=== PATIENT | female | born 1990 | race Caucasian/White ===

== ENCOUNTER 2018-07-16 17:13 | Emergency (ER) | payer BC, SELFPAY ==
[2018-07-16 17:24] VITALS: BP 117/70; PULSE 98; RESP 18; TEMP 36.5; O2SAT 97
[2018-07-16] MEDS: Lactated Ringers 1,000 ML 1000 ML IV (18:15)
--- NOTE | 2018-07-16 18:21 | ED.GENADUL_ITS ---
Discharge Plan Disposition Patient Disposition: HOME Condition: Improving Discharge Details Chief Complaint: Abd Prob Clinical Impression: Acute viral syndrome, Abdominal pain Primary Care Provider: Nimco Sandy ED Provider: Abad St Home Meds and New Rx's Prescriptions: No Action melatonin 10 mg Capsule 10 mg PO HS PRNRF: 0 Discharge Instructions Instructions: Viral Syndrome (ED), Abdominal Pain (ED) Additional Instructions: 1. Drink plenty of fluids. Advance solids as tolerated. 2. Continue all medications as prescribed. 3. Acetaminophen 1000mg every 4 hours (up to 5 time a day) and/or ibuprofen 600mg every 6 hours as needed for fever or pain. 4. Ranitidine 300 mg at bedtime. 5. Ondansetron (Zofran) 4 mg ODT every 4-6 hours as needed for nausea/vomiting. Return to the Emergency Department (ED) if your condition worsens, does not improve as expected, or for ANY other concerns. Specifically, return if you have new or uncontrolled pain, worsening fever, difficulty breathing, vomiting, or are unable to drink fluids. Medical Decision Making 28-year-old woman with an unremarkable past medical history presents with generalized myalgias, upper abdominal pain, nausea, and weakness. Nonfocal exam except for dry mucosa and mild epigastric tenderness which reproduces subjective pain. Clinical improved after receiving IV crystalloid, IV metoclopramide. However, had mild anxiety/dystonia associate with her metoclopramide which resolved after receiving IV diphenhydramine. On reevaluation feels subjectively improved with reduced abdominal pain, resolved nausea, and resolved anxiety. Also notes resolution of her subjective chest tightness with inspiration treated with oral ranitidine and discharged home with ondansetron ODT. Discharged plan for aggressive oral hydration, ranitidine at bedtime, and Zofran ODT as needed for persistent nausea. Pt evaluated immediately prior to discharge with improved symptoms, normal vital signs, and tolerating PO. The patient feels appropriate for discharge home. Discussed clinical/diagnostic findings. Discharged with a clear plan for outpatient follow up. Given usual and customary return instructions prior to discharge. Medical Records Medical records reviewed: Yes I reviewed the patient's medical records. HPI 28-year-old with unremarkable past medical history. Presents with days of worsening nausea, malaise, myalgias, mild dyspnea, and upper abdominal pain. Has been able to take some liquids and but has had a decreased appetite because of her discomfort. Denies significant fever/chills, headache, neck pain, chest pain, cough, change in bowel habits, urinary symptoms. General Date/Time Provider Initiated Documentation: 07/16/18 17:47 . Related Data Home Medications Medication Instructions Recorded Confirmed melatonin 10 mg PO HS PRN 07/16/18 07/16/18 Allergies Allergy/AdvReac Type Severity Reaction Status Date / Time No Known Allergies Allergy Unverified 07/16/18 17:31 General Stated Complaint: Abd Prob PATRICIA: 3 Review of Systems Review of Systems All systems are reviewed and are unremarkable except as noted in HPI and below: CONSTITUTIONAL: no fevers/chills, weakness, decreased appetite EYES: no change in vision HEENT: no throat pain or difficulty swallowing; no neck pain CARDIOVASCULAR: no chest pain, palpitations, leg swelling, or diaphoresis RESPIRATORY: no cough, mild subjective chest tightness/dyspnea GASTROINTESTINAL: Upper abdominal pain and nausea with no emesis. GENITOURINARY: no dysuria, flank pain, MUSCULOSKELETAL: no pack pain, myalgias, arthralgias INTEGUMENTARY: no rash, no wounds NEUROLOGIC: no headache, focal weakness, difficulty with speech, numbness PSYCHIATRIC: no confusion, no anxiety HEME: no easy bruising or bleeding ALLERGIC: no urticaria PFSH Medical History Idiopathic peripheral neuropathy (Acute) Surgical History History of repair of anterior cruciate ligament of left knee (Acute) Family History Father Hypertension Hyperlipidemia Gout Mother Fatty liver Tremor Paternal Grandmother Depression Bipolar 1 disorder Diabetes Social History Smoking/Tobacco Use Status: Never Alcohol Intake: current Alcohol Intake frequency: a few times a week Drug use: Never Substance use type: does not use Do you feel safe at home: Yes Do you feel safe in your relationship?: Yes Exam Narrative Exam Narrative: Nursing note and vital signs have been reviewed and noted. GENERAL: alert, active, mild discomfort, dry mucosa HEENT: atraumatic/normocephalic, PERRLA, EOMI, conjunctiva clear, external ears/canals normal, nasal mucosa normal NECK: supple, full range of motion, no mass, normal lymphadenopathy, no thyromegaly CARDIOVASCULAR: RRR, no murmurs, nl pulses, no edema PULMONARY: nl effort, no audible wheezing or stridor, nl breath sounds with no focal deficit. no chest wall tenderness ABDOMEN: soft, mild epigastric tenderness, non-distended, no mass, no organomegaly EXTREMITY: normal muscle tone, all joints with FROM, no deformity or tenderness SKIN: no exanthem appreciated NEURO: gross motor exam normal, normal stance and gait PSYCH: alert and oriented, Course Vital Signs Temperature 97.7 F 07/16/18 17:24 Pulse 98 H 07/16/18 17:24 Respiratory Rate 18 07/16/18 17:24 Blood Pressure 117/70 07/16/18 17:24 Pulse Oximetry 97 07/16/18 17:24 Temperature 97.7 F 07/16/18 17:24 Temperature Source Temporal Artery Scan 07/16/18 17:24 Pulse 98 H 07/16/18 17:24 Respiratory Rate 18 07/16/18 17:24 Respiratory Effort Non-Labored 07/16/18 17:28 Blood Pressure 117/70 07/16/18 17:24 Blood Pressure Position Sitting 07/16/18 17:24 Pulse Oximetry 97 07/16/18 17:24 Oxygen Delivery Method Room Air 07/16/18 17:24 Oxygen Flow Rate 0 07/16/18 17:24 Pain Level 9 07/16/18 17:24
[2018-07-16] MEDS: Metoclopramide 10 MG/2 ML VIAL IVP (18:22)
[2018-07-16] MEDS: diphenhydrAMINE 50 MG/ML VIAL 25 MG IVP (18:35)
[2018-07-16] MEDS: Ondansetron O.D.T. 4 MG TABEF PO (19:10)
== END 2018-07-16 19:12 | disposition home or self-care (01) ==
PROVIDERS: Emergency Provider Emergency Medicine; PCP Nurse Practitioner Family
DX: B34.9 Viral infection, unspecified (principal); R10.9 Unspecified abdominal pain
CPT/HCPCS: 81025; 96361; 96374; 96375; 99284; J2765

== ENCOUNTER 2019-02-04 21:25 | Outpatient (REF) | payer BC, SELFPAY ==
[2019-02-04 19:02] LABS: Anion Gap 8.5 mmol/L (3-11); BUN 14 mg/dL (7-18); CO2 27.5 mmol/L (21.0-32.0); Calcium 8.8 mg/dL (8.5-10.1); Chloride 103 mmol/L (98-107); Glucose 94 mg/dL (70-100); Potassium 4.2 mmol/L (3.5-5.1); Sodium 139 mmol/L (136-145)
[2019-02-04 19:04] LABS: HCT 42.1 % (36.0-46.0); Mean Corp. HGB Concentration 33.3 g/dL (32.0-36.0); Mean Corpuscular Volume 90.1 fL (80-95); Mean Platelet Volume 9.4 fL (8.0-11.0); Platelet Count 314 x1000/uL (130-400); RBC 4.67 m/cumm (4.00-5.20); RBC Distribution Width 12.7 % (11.7-14.6); White Blood Cell Count 7.44 k/cumm (4.4-10.8)
[2019-02-04 19:47] LABS: Iron 53 ug/dL (50-175); Total Iron Binding Capacity 314 ug/dL (250-450); Transferrin Sat 17 % (15-50)
[2019-02-06 10:25] LABS: Lyme Ab w Rflx to Lyme Confirm Negative
== END 2019-02-04 21:45 ==
LOC: NCHCN 21:25
PROVIDERS: PCP Nurse Practitioner Family; Visit Provider Nurse Practitioner Family
DX: R53.83 Other fatigue (principal)
CPT/HCPCS: 80048; 85027; 83540; 83550; 86618

== ENCOUNTER 2019-08-29 01:31 | Outpatient (CLI) | payer BC, SELFPAY ==
--- NOTE | 2019-08-29 | DI.US_ITS ---
EXAM: US ABDOMEN PELVIS CLINICAL HISTORY: LLQ ABD PAIN, R10.32, ? ABD OR PELVIC MASS,HEARTBURN TECHNIQUE: Ultrasound performed using standard protocol. COMPARISON: No exams were available for comparison FINDINGS: Abdominal ultrasound was performed and shows unremarkable appearance of the liver. There is no evide nce of cholelithiasis or biliary dilatation. No gallbladder wall thickening. The pancreas is unremarkable in appearance. Spleen appears normal. Kidneys are unremarkable with no evidence of hydronephrosis or nephrolithiasis. Abdominal aorta and IVC are of normal diameter. Pelvic ultrasound was performed trans abdominally only. The examination is of limited technical qual ity due to the trans abdominal scan and the patient's anatomy. The ovaries are nonvisualized. The u terus is poorly visualized. Endometrial stripe appears homogeneous and about 7 millimeters in thickn ess. Question bicornuate uterus. IMPRESSION: Unremarkable abdominal ultrasound, no cholelithiasis. Pelvic ultrasound was obtained transabdominally only and is of limited quality. If there is a clinic al suspicion of a pelvic mass transvaginal scanning or other cross-sectional imaging, CT or MRI, may be obtained. DATA REPOSITORY:
== END 2019-08-29 01:51 ==
PROVIDERS: PCP Nurse Practitioner Family; Visit Provider Nurse Practitioner Family
DX: R10.32 Left lower quadrant pain (principal); R12 Heartburn
CPT/HCPCS: 76700; 76856

== ENCOUNTER 2021-08-23 15:55 | Outpatient (REF) | payer BC, SELFPAY ==
[2021-08-23 17:04] LABS: Abs Immature Grans 0.01 10^3/uL (0.0-0.06); Absolute Basophil Count 0.05 10^3/uL (0.0-0.2); Absolute Eosinophil Count 0.05 10^3/uL (0.0-0.7); Absolute Lymphocyte Count 1.99 10^3/uL (1.2-3.4); Absolute Monocyte Count 0.45 10^3/uL (0.1-0.8); Absolute Neutrophil Count 3.07 10^3/uL (1.2-6.7); Basophils % 0.9; Eosinophils % 0.9; HCT 44.5 % (36.0-46.0); HGB 14.1 g/dL (11.2-15.7); Immature Grans % 0.2; Lymphocytes % 35.4; MCH 29.7 pg (27.0-33.0); MCHC 31.7 % (32.0-36.0); MCV 93.9 fL (80-95); MPV 9.5 fL (8.0-11.0); Neutrophils % 54.6; Platelet Count 339 10^3/uL (130-400); RBC 4.74 10^6/uL (3.93-5.22); RDW 12.3 % (11.7-14.6); WBC 5.62 10^3/uL (4.4-10.8)
[2021-08-23 17:20] LABS: ESR 6 mm/hr (0-20)
[2021-08-23 17:37] LABS: ALT 27 U/L (14-59); AST 21 U/L (15-37); Albumin 4.3 g/dL (3.4-5.0); Alkaline Phosphatase 66 U/L (46-116); Anion Gap 7.8 mmol/L (3-11); BUN 8 mg/dL (7-18); Bilirubin, Total 0.4 mg/dL (0.2-1.0); CO2 28.2 mmol/L (21.0-32.0); CREATININE 0.7 mg/dL (0.55-1.02); Calcium 8.9 mg/dL (8.5-10.1); Chloride 104 mmol/L (98-107); Folate 17.9 ng/mL (8.6-20.0); Glucose 98 mg/dL (74-106); Potassium 4.3 mmol/L (3.5-5.1); Sodium 140 mmol/L (136-145); TSH (W/Ref FT4) 3.04 uIU/mL (0.36-3.74); Total Protein 7.6 g/dL (6.4-8.2)
[2021-08-25 10:32] LABS: Hepatitis C Ab w Rflx HCV PCR Negative (Negative)
[2021-08-25 10:34] LABS: HIV-1/2 Ag & Ab Screen Negative (Negative)
== END 2021-08-23 15:56 | disposition home or self-care (01) ==
LOC: LBN 15:55
PROVIDERS: PCP Nurse Practitioner Family; Visit Provider Nurse Practitioner Family
DX: R10.32 Left lower quadrant pain (principal)
CPT/HCPCS: 80053; 85652; 86803; 87389; 82746; 84443; 85025

== ENCOUNTER 2022-05-03 19:02 | Outpatient (REF) | payer BC, SELFPAY ==
--- NOTE | 2022-05-03 19:23 | DI.VRAD_ITS ---
PROCEDURE INFORMATION: Exam: XR Chest Exam date and time: 05/03/2022 7:16 PM Age: 32 years old Clinical indication: Other: Left flank pain and or left lower rib pain; Additional info: PT. Has been having left flank pain, and or left lower rib pain TECHNIQUE: Imaging protocol: Radiologic exam of the chest. Views: 2 views. COMPARISON: CT ABDOMEN PELVIS W 09/03/2020 8:17 AM FINDINGS: Lungs: Mild chronic interstitial prominence. No consolidation. Pleural spaces: Unremarkable. No pleural effusion. No pneumothorax. Heart/Mediastinum: Unremarkable. No cardiomegaly. Bones/joints: Unremarkable. IMPRESSION: No acute findings. Dictated and Authenticated by: Jose Collazo MD. Ordering:RANDELL Costello MD
[2022-05-03 21:15] LABS: Abs Immature Grans 0.02 10^3/uL (0.0-0.06); Absolute Basophil Count 0.05 10^3/uL (0.0-0.2); Absolute Eosinophil Count 0.07 10^3/uL (0.0-0.7); Absolute Lymphocyte Count 2.79 10^3/uL (1.2-3.4); Absolute Monocyte Count 0.73 10^3/uL (0.1-0.8); Absolute Neutrophil Count 3.89 10^3/uL (1.2-6.7); Basophils % 0.7; Eosinophils % 0.9; HCT 42.3 % (36.0-46.0); Immature Grans % 0.3; MCHC 33.1 % (32.0-36.0); MCV 91 fL (80-95); MPV 9.2 fL (8.0-11.0); Monocytes % 9.7; Neutrophils % 51.4; Platelet Count 329 10^3/uL (130-400); RBC 4.67 10^6/uL (3.93-5.22); RDW 12.8 % (11.7-14.6); RDW-SD 42.3 fL; WBC 7.55 10^3/uL (4.4-10.8)
[2022-05-03 21:35] LABS: ALT 23 U/L (14-59); AST 22 U/L (15-37); Albumin 4.4 g/dL (3.4-5.0); Alkaline Phosphatase 61 U/L (46-116); Anion Gap 7.4 mmol/L (3-11); BUN 14 mg/dL (7-18); Bilirubin, Total 0.4 mg/dL (0.2-1.0); CO2 27.6 mmol/L (21.0-32.0); CREATININE 0.8 mg/dL (0.55-1.02); Calcium 9.4 mg/dL (8.5-10.1); Chloride 105 mmol/L (98-107); Estimated GFR 100.96 (mL/min/1.73m2); Glucose 93 mg/dL (74-106); Lipase 49 U/L (73-393); Potassium 4.1 mmol/L (3.5-5.1); Sodium 140 mmol/L (136-145); Total Protein 7.8 g/dL (6.4-8.2)
== END 2022-05-03 19:03 | disposition home or self-care (01) ==
LOC: LBN 19:02
PROVIDERS: PCP Nurse Practitioner Family; Visit Provider Physician Assistant Medical
DX: R10.31 Right lower quadrant pain (principal)
CPT/HCPCS: 80053; 83690; 85025

== ENCOUNTER 2022-05-03 19:07 | Outpatient (CLI) | payer BC, SELFPAY ==
--- NOTE | 2022-05-03 | DI.RAD_ITS ---
Exam(s) XR CHEST 2V PA LATERAL EXAM: XR CHEST 2V PA LATERAL CLINICAL HISTORY: Experiencing left flank pain and or left lower rib pain. TECHNIQUE: 2D digital imaging was performed. COMPARISON: No exams were available for comparison FINDINGS: 2 views: Heart size is normal. The mediastinum is not widened. Lungs are clear. No infiltrates nor pleural effusions. IMPRESSION: No acute pulmonary findings. DATA REPOSITORY: RADIATION DOSE DELIVERED:
== END 2022-05-03 19:27 ==
LOC: DI 19:09
PROVIDERS: PCP Nurse Practitioner Family; Visit Provider Physician Assistant Medical
DX: R10.32 Left lower quadrant pain (principal)
CPT/HCPCS: 71046

== ENCOUNTER 2022-10-12 19:12 | Outpatient (REF) | payer BC, SELFPAY ==
--- OUTSIDE RECORDS SUMMARY | 2022-10-12 19:15 | XMS_ITS | Continuity of Care Document ---
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 [employer] Name Role Phone Aleks Nguyen Primary Care Physician Encounter [facility] Date(s): 04/04/22 - 04/04/[address] [phone] Discharge Disposition: Home or Self Care Attending Physician: Aleks Nguyen DO Admitting Physician: Aleks Nguyen DO Immunizations Given and Recorded Vaccine Date Status Refusal Reason influenza virus vaccine, inactivated 1 02/09/22 Re corded SARS-CoV-2 (COVID-19) mRNA-1273 vaccine 05/09/21 R ecorded SARS-CoV-2 (COVID-19) mRNA-1273 vaccine 06/23/20 R ecorded SARS-CoV-2 (COVID-19) mRNA-1273 vaccine 05/26/20 R ecorded influenza virus vaccine, live 02/03/21 Recorded influenza virus vaccine, live 01/26/20 Recorded influenza virus vaccine, live 01/23/19 Recorded 1Result Comment: [employer] Results Laboratory List Name Date SARS-CoV-2 (COVID-19) RNA (ID Now) Most recent to oldest [Reference Range]: 1 SARS-CoV-2 (COVID-19) RNA (ID Now) [Not Detected] Not Detected (04/04/22 9:07 AM) Social History Social History Type Response Sex Female Patient Care team information Personnel Name: Aleks Nguyen DO Address: Address: [address] [address]
== END 2022-10-12 19:13 | disposition home or self-care (01) ==
LOC: LBN 19:12
PROVIDERS: PCP Nurse Practitioner Family; Visit Provider Physician Assistant Medical
DX: R10.2 Pelvic and perineal pain (principal)
CPT/HCPCS: 87480; 87510; 87660

== ENCOUNTER 2022-11-03 01:12 | Outpatient (CLI) | payer BC, SELFPAY ==
--- NOTE | 2022-11-03 | DI.MRI_ITS ---
Exam(s) MR PELVIS WO EXAM: MR PELVIS WO CLINICAL HISTORY: PELVIC PAIN R10.2 INCREASING DAILY PAIN TECHNIQUE: Multiplanar multisequence MRI of Pelvis was performed COMPARISON: CT CT ABDOMEN PELVIS W from 09/03/2020 US US RENAL PELVIC TRANSVAGINAL from 05/09/2022 FINDINGS: Bones: There is no fracture or contusion pattern. No significant hip joint effusion present. The S I joints and symphysis pubis are well maintained. Suspicious bony lesion. Lower lumbar spine and s acrum appear normal. L4-5 and L5-S1 discs are visible and appear normal. No disc herniation or neur al foraminal narrowing. No central canal stenosis. Musculotendinous structures: No muscle atrophy or abnormal signal. 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 No fibroids. The endometrial stripe appears no rmal. A nabothian cyst is incidentally noted. Dominant follicle present on the right ovary. Left o vary tiny follicles. The visualized portions of the bowel are unremarkable. Bladder appears normal. No free fluid. No adenopathy. Soft tissues: No lower anterior abdominal wall or inguinal hernia. IMPRESSION: Normal MRI examination the pelvis. DATA REPOSITORY:
== END 2022-11-03 01:32 ==
LOC: DI 01:12
PROVIDERS: PCP Nurse Practitioner Family; Visit Provider Physician Assistant Medical
DX: R10.2 Pelvic and perineal pain (principal); N85.8 Other specified noninflammatory disorders of uterus; N83.01 Follicular cyst of right ovary; N83.02 Follicular cyst of left ovary
CPT/HCPCS: 72195

== ENCOUNTER 2024-03-10 18:23 | Outpatient (REF) | payer BC, SELFPAY ==
[2024-03-10 15:45] LABS: Abs Immature Grans 0.02 10^3/uL (0.0-0.06); Absolute Basophil Count 0.05 10^3/uL (0.0-0.2); Absolute Eosinophil Count 0.03 10^3/uL (0.0-0.7); Absolute Lymphocyte Count 2.15 10^3/uL (1.2-3.4); Absolute Monocyte Count 0.57 10^3/uL (0.1-0.8); Absolute Neutrophil Count 3.86 10^3/uL (1.2-6.7); Basophils % 0.7 %; Eosinophils % 0.4 %; HGB 13.7 g/dL (11.2-15.7); Immature Grans % 0.3 %; Lymphocytes % 32.2 %; MCH 30.6 pg (27.0-33.0); MCHC 32.6 % (32.0-36.0); MCV 94 fL (80-95); MPV 9.2 fL (8.0-11.0); Monocytes % 8.5 %; Neutrophils % 57.9 %; Platelet Count 369 10^3/uL (130-400); RBC 4.48 10^6/uL (3.93-5.22); RDW 13.1 % (11.7-14.6); RDW-SD 45.1 fL; WBC 6.68 10^3/uL (4.4-10.8)
[2024-03-10 17:06] LABS: ALT 23 U/L (14-59); AST 19 U/L (15-37); Albumin 3.8 g/dL (3.4-5.0); Alkaline Phosphatase 52 U/L (46-116); Anion Gap 8.5 mmol/L (3-11); BUN 9 mg/dL (7-18); Bilirubin, Total 0.37 mg/dL (0.2-1.0); CO2 28.5 mmol/L (21.0-32.0); CREATININE 0.8 mg/dL (0.55-1.02); Chloride 107 mmol/L (98-107); Estimated GFR 99.71 (mL/min/1.73m2); Glucose 93 mg/dL (74-106); Potassium 4.5 mmol/L (3.5-5.1); Sodium 144 mmol/L (136-145); TSH (W/Ref FT4) 1.73 uIU/mL (0.36-3.74); Total Protein 7.2 g/dL (6.4-8.2)
[2024-03-10 17:37] LABS: Mono Screening Negative (Negative)
== END 2024-03-10 18:24 | disposition home or self-care (01) ==
LOC: LBN 18:23
PROVIDERS: Visit Provider Family Medicine
DX: R53.83 Other fatigue (principal)
CPT/HCPCS: 80053; 84443; 85025; 86308

== ENCOUNTER 2024-03-21 12:55 | Outpatient (RCR) | payer BC, SELFPAY | END 2024-03-29 23:59 | disposition home or self-care (01) | LOC: CARDOPNVT 12:55 | PROVIDERS: Visit Provider Internal Medicine Cardiovascular Disease | DX: R00.2 Palpitations (principal); I49.3 Ventricular premature depolarization | CPT/HCPCS: 93225; 93226 ==

== ENCOUNTER 2024-07-31 16:10 | Emergency (ER) | payer BC, SELFPAY ==
--- NOTE | 2024-07-31 16:00 | RT.EKG_ITS ---
APPROVED REPORT Exam: Resting ECG Reason for Exam: Chest Pain Patient Location: E HR:76 bpm ECG Measurements Heart Rate 76 AXIS WI 126 P 22 QRSd 77 QRS 65 QT 375 T 10 QTc 421 Conclusion Sinus rhythm...normal P axis, V-rate 60- 99
[2024-07-31 16:13] VITALS: BP 125/84; PULSE 82; RESP 16; TEMP 36.9; O2SAT 98
--- NOTE | 2024-07-31 16:15 | DI.CT_ITS ---
Exam(s) CT CHEST PE CTA EXAM: CT CHEST PE CTA CLINICAL HISTORY: hysterectomy yesterday, chest pain/dyspnea. TECHNIQUE: Imaging Protocol: CT angiography of the chest was performed using pulmonary embolus ashley col. Multi planar reconstructions were performed. CONTRAST MATERIAL: Intravenous: Omnipaque 350 Contrast volume: 100 cc COMPARISON: No exams were available for comparison FINDINGS: CHEST: PULMONARY ARTERIES: There are no obvious intraluminal filling defects to suggest acute pulmonary embo li. LUNGS: Mild increased markings noted in the posterior basal segments of both lower lobes, pleural bas ed consistent with mild infiltrates. No associated pleural effusions. No ominous pulmonary nodules. No significant focal findings in the trachea and mainstem bronchi. There is no bronchiectasis. MEDIASTINUM: There is no hilar nor mediastinal adenopathy. Visualized thyroid unremarkable. CARDIAC: Heart size is upper normal. There is no pericardial effusion.Caliber of the thoracic aorta is within normal limits. No evidence of dissection. There is no significant shift of the interventri cular septum. PARTIALLY VISUALIZED UPPERMOST ABDOMEN: There is free intraperitoneal air noted. OSSEOUS: No fractures. No significant osseous lesions.. IMPRESSION: 1. No evidence of acute pulmonary emboli. However, there are mild pleural based infiltrates in the p osterior basal segments of both lower lobes, slightly more prominent on the left side. There are no pleural effusions 2. There is abundant free intraperitoneal air noted in the abdomen. Apparently this patient had rece nt abdominal surgery. Correlate clinically Findings discussed by myself with ER physician 07/31/2024 at 5:40 p.m. RADIATION DOSE DELIVERED: 157.34mGy.cm Total DLP DATA REPOSITORY: All CT scans at this facility are submitted to the National Radiology Data Registry (NRDR) Dose Index Registry (DIR) with the [employer] (ACR). RADIATION OPTIMIZATION: All CT scans at this facility use at least one of these dose optimization te chniques: automated exposure control; mA and/or kV adjustment per patient size (includes targeted exa ms where dose is matched to clinical indication); or iterative reconstruction.
--- NOTE | 2024-07-31 16:30 | W.ED.GENAD ---
Discharge Plan Disposition Patient Disposition: Home Condition: Stable Discharge Details Clinical Impression: Chest pain Primary Care Provider: Michelle Munoz ED Provider: Benjamín Dumas Home Meds and New Rx's Prescriptions: New levofloxacin 750 mg tablet 750 mg PO DAILY Qty: 7 0RF Continued melatonin 10 mg Capsule 10 mg PO HS PRN oxycodone 5 mg tablet 5 mg PO Q4H PRN PRN Patient Comments: TAKE ONE TABLET BY MOUTH EVERY 4 HOURS NEEDED FOR PAIN docusate sodium 100 mg capsule 100 mg PO BID Patient Comments: TAKE ONE CAPSULE BY MOUTH TWICE A DAY FOR 10 DAYS polyethylene glycol 3350 17 gram/dose powder 17 g PO DAILY Patient Comments: TAKE 17GM BY MOUTH DAILY norethindrone ac-eth estradiol [Dominguez 05/19 ()] 1-20 mg-mcg tablet 1 tab PO DAILY Patient Comments: TAKE ONE TABLET BY MOUTH EVERY DAY Discharge Instructions Additional Instructions: Here blood work including cardiac enzymes did not show any concerning findings at this time. You do have some infiltrates in your lungs which is not uncommon after having a intubation for surgery. You also have free air in your abdomen which is also not uncommon after surgery. Try to make sure you are taking deep breaths is much as possible. If you spike any fevers or have chills or severe cough fill the antibiotic and take it daily. Follow-up with your surgeon. If you feel more ill or have severe worsening pain or difficulty breathing return to the emergency department for reevaluation HPI General Date/Time Provider Initiated Documentation: 07/31/24 16:11. Limitations to Documentation: no limitations. Information obtained by: patient. History of Present Illness 34 year old F presents to the emergency department with the chief complaint of chest pain, dyspnea, described as moderate, Patient started experiencing this day(s) (1) and it has been constant. No relieving factors improve symptom(s), No exacerbating factors reported . Patient notes no other symptoms.. Patient did receive the following treatments prior to arrival, none Related Data Home Medications ?Medication ?Instructions ?Recorded ?Confirmed melatonin 10 mg capsule 10 mg PO HS PRN 07/16/18 07/31/24 docusate sodium 100 mg capsule 100 mg PO BID 07/31/24 07/31/24 levofloxacin 750 mg tablet 750 mg PO DAILY #7 tabs 07/31/24 norethindrone acetate 1 mg-ethinyl 1 tab PO DAILY 07/31/24 07/31/24 estradiol 20 mcg tablet (Dominguez) oxycodone 5 mg tablet 5 mg PO Q4H PRN PRN 07/31/24 07/31/24 polyethylene glycol 3350 17 17 g PO DAILY 07/31/24 07/31/24 gram/dose oral powder Previous Rx's ?Medication ?Instructions ?Recorded levofloxacin 750 mg tablet 750 mg PO DAILY #7 tabs 07/31/24 Allergies Allergy/AdvReac Type Severity Reaction Status Date / Time amoxicillin AdvReac Intermediate Skin Rash Verified 07/31/24 16:18 General Stated Complaint: Chest Pain PATRICIA: 3 Review of Systems All systems reviewed & are unremarkable except as noted in HPI and below Constitutional Constitutional: Denies chills and Denies fever(s) Cardiovascular Cardiovascular: Reports chest pain and Reports dyspnea Respiratory Respiratory: Denies cough and Reports dyspnea Gastrointestinal Gastrointestinal: Denies vomiting Exam Const General: no acute distress Orientation: alert HENMT Head: normal to inspection Ears: external ears normal General nose exam: external nose normal Mouth: moist mucous membranes Eyes General: appearance normal, both eyes and all related structures Neck Neck: normal visual inspection Resp Effort & Inspection: normal respiratory effort and able to speak in complete sentences Auscultation: clear to auscultation bilaterally Cardio Jugular venous pressure: no JVD Rate: regular rate Heart Sounds: no murmurs GI Palpation: soft Skin General skin exam: no rashes or lesions noted Neuro General: patient alert and patient oriented x3 Extrem General: normal to inspection Psych Mental Status: mental status grossly normal Course Vital Signs Vital signs: Vital Signs Temperature 36.9 C 07/31/24 16:13 Pulse 82 07/31/24 16:13 Respiratory Rate 16 07/31/24 16:13 Blood Pressure 125/84 07/31/24 16:13 Pulse Oximetry 98 07/31/24 16:13 Temperature 36.9 C 07/31/24 16:13 Temperature Source Oral 07/31/24 16:13 Pulse 82 07/31/24 16:13 Respiratory Rate 16 07/31/24 16:13 Blood Pressure 125/84 07/31/24 16:13 Blood Pressure Position Sitting 07/31/24 16:13 Pulse Oximetry 98 07/31/24 16:13 Oxygen Delivery Method Room Air 07/31/24 16:13 Oxygen Flow Rate 0 07/31/24 16:13 Medical Decision Making 34-year-old female who states she had a hysterectomy that was uncomplicated on at [facility] yesterday, comes in with complaints of chest pain and does not feel he can take a full breath in. She denies any fevers, vomiting, she has some mild lower abdominal tenderness but otherwise no significant abdominal pain. She is alert and oriented x 4 on arrival and is in no distress. She is speaking in full sentences in no distress. She has clear lung sounds, no JVD, no murmurs. Given her recent surgery and complaints we will proceed with CBC, CMP, troponins and CTA to evaluate for PE. Patient's labs unremarkable, CT shows no PE but does have some bilateral infiltrates likely from being intubated for her procedure yesterday, also severe in her belly but has no peritoneal signs and I suspect it was just residual from her surgery. She is stable and feels well. I will provide her with a paper prescription for antibiotics in case she spikes any fevers or respiratory symptoms. She will follow-up with her surgeon and return precautions given Differential Diagnosis Differential Diagnosis: NSTEMI, PE, atelectasis, aspiration Lab Data Lab results reviewed: Yes I reviewed the patient's lab results. ECG Data Attestation: I personally reviewed and interpreted this ECG (s) as follows: Prior ECG tracings: not available for review Interpretation: Sinus rhythm, rate of 76, OR 126, no STEMI Quality:SDOH Health Related Social Needs: No Data to Display PFSH All Active Problems (Updated 07/31/24 @ 18:02 by Benjamín Dumas MD) Chest pain (Acute) Neuropathy (Acute 04/19/17) Medical History (Updated 07/31/24 @ 18:02 by Benjamín Dumas MD) Idiopathic peripheral neuropathy Surgical History (Updated 04/02/18 @ 09:39 by Fay aWlls LPN) History of repair of anterior cruciate ligament of left knee Family History (Updated 04/02/18 @ 09:38 by Fay Walls LPN) Father Hypertension Hyperlipidemia Gout Mother Fatty liver Tremor Paternal Grandmother Depression Bipolar 1 disorder Diabetes Social History (Updated 04/02/18 @ 09:35 by Fay Walls LPN) Smoking/Tobacco Use Status: Never Smoking risk assessment performed?: Yes Alcohol Intake: current Alcohol Intake frequency: a few times a week Drug use: Never Substance use type: does not use 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
[2024-07-31 16:36] LABS: Abs Immature Grans 0.03 10^3/uL (0.0-0.06); Absolute Basophil Count 0.05 10^3/uL (0.0-0.2); Absolute Eosinophil Count 0.06 10^3/uL (0.0-0.7); Absolute Lymphocyte Count 3.42 10^3/uL (1.2-3.4); Absolute Neutrophil Count 4.66 10^3/uL (1.2-6.7); Basophils % 0.6 %; Eosinophils % 0.7 %; HCT 43.2 % (36.0-46.0); HGB 13.8 g/dL (11.2-15.7); Immature Grans % 0.3 %; Lymphocytes % 38.8 %; MCH 31.1 pg (27.0-33.0); MCHC 31.9 % (32.0-36.0); MCV 97 fL (80-95); Monocytes % 6.8 %; Neutrophils % 52.8 %; Platelet Count 285 10^3/uL (130-400); RBC 4.44 10^6/uL (3.93-5.22); RDW 13.7 % (11.7-14.6); RDW-SD 49.6 fL; WBC 8.82 10^3/uL (4.4-10.8)
[2024-07-31 16:47] VITALS: RESP 18
[2024-07-31 17:00] LABS: ALT 25 U/L (14-59); AST 17 U/L (15-37); Albumin 3.3 g/dL (3.4-5.0); Alkaline Phosphatase 53 U/L (46-116); Anion Gap 7.2 mmol/L (3-11); BUN 11 mg/dL (7-18); Bilirubin, Total 0.3 mg/dL (0.2-1.0); CO2 29.8 mmol/L (21.0-32.0); CREATININE 0.9 mg/dL (0.55-1.02); Calcium 8.8 mg/dL (8.5-10.1); Chloride 108 mmol/L (98-107); Estimated GFR 86.57 (mL/min/1.73m2); Glucose 98 mg/dL (74-106); NT-proBNP 197 pg/mL (<300); Potassium 4.1 mmol/L (3.5-5.1); Sodium 145 mmol/L (136-145); Troponin I 6 ng/L (<or=51)
[2024-07-31] MEDS: Omnipaque 350 MG/ML 100 ML BTL IJ (17:08)
[2024-07-31] MEDS: Normal Saline - Diluent 50 ML VIAL IJ (17:09)
[2024-07-31 17:28] VITALS: BP 107/69; PULSE 71; RESP 18; O2SAT 99
[2024-07-31 17:47] LABS: Troponin I 7 ng/L (<or=51)
[2024-07-31 18:14] VITALS: BP 112/64; PULSE 67; RESP 18; O2SAT 97
== END 2024-07-31 18:16 | disposition home or self-care (01) ==
PROVIDERS: Emergency Provider Emergency Medicine; PCP Nurse Practitioner Family
DX: R07.9 Chest pain, unspecified (principal); Z90.710 Acquired absence of both cervix and uterus; Z98.890 Other specified postprocedural states
CPT/HCPCS: 36415; 71275; 80053; 93005; 99285; 83735; 83880; 84484; 85025; 93010; 99284; J3490

== ENCOUNTER 2024-08-19 15:37 | Outpatient (REF) | payer BC, SELFPAY ==
[2024-08-19 21:21] LABS: Abs Immature Grans 0.02 10^3/uL (0.0-0.06); Absolute Eosinophil Count 0.21 10^3/uL (0.0-0.7); Absolute Lymphocyte Count 2.51 10^3/uL (1.2-3.4); Absolute Monocyte Count 0.66 10^3/uL (0.1-0.8); Basophils % 1.2 %; Eosinophils % 2.5 %; HCT 45.8 % (36.0-46.0); HGB 14.8 g/dL (11.2-15.7); Immature Grans % 0.2 %; Lymphocytes % 29.9 %; MCH 30.6 pg (27.0-33.0); MCHC 32.3 % (32.0-36.0); MCV 95 fL (80-95); MPV 8.9 fL (8.0-11.0); Monocytes % 7.9 %; Neutrophils % 58.3 %; Platelet Count 505 10^3/uL (130-400); RBC 4.84 10^6/uL (3.93-5.22); RDW 12.6 % (11.7-14.6); RDW-SD 43.8 fL
[2024-08-19 21:32] LABS: Bilirubin Negative (Negative); Blood Trace-intact (Negative); Clarity Clear (Clear); Glucose Negative (Negative); Ketones Negative (Negative); Leukocyte Esterase Trace (Negative); Nitrite Negative (Negative); Urobilinogen 0.2 mg/dL (Up to 0.2); pH 5.5 (5-8)
[2024-08-19 21:36] LABS: ALT 26 U/L (14-59); AST 17 U/L (15-37); Albumin 3.8 g/dL (3.4-5.0); Alkaline Phosphatase 69 U/L (46-116); Anion Gap 5.2 mmol/L (3-11); BUN 14 mg/dL (7-18); Bilirubin, Total 0.2 mg/dL (0.2-1.0); CO2 27.8 mmol/L (21.0-32.0); CREATININE 0.9 mg/dL (0.55-1.02); Calcium 9.4 mg/dL (8.5-10.1); Chloride 105 mmol/L (98-107); Estimated GFR 86.57 (mL/min/1.73m2); Glucose 91 mg/dL (74-106); Potassium 4.8 mmol/L (3.5-5.1); Sodium 138 mmol/L (136-145); Total Protein 7.4 g/dL (6.4-8.2)
[2024-08-19 21:43] LABS: Bacteria Rare HPF (Negative); C & S Indicated? No; Casts Negative LPF (Negative); Crystals Rare Calcium Oxalate HPF (Negative); Epithelial Cells Moderate HPF (Negative); Mucus Trace (Negative); RBC 0-2 HPF (0-2)
== END 2024-08-19 15:38 | disposition home or self-care (01) ==
LOC: NCHCN 15:37
PROVIDERS: PCP Nurse Practitioner Family; Visit Provider Nurse Practitioner Family
DX: R10.2 Pelvic and perineal pain (principal); N89.8 Other specified noninflammatory disorders of vagina
CPT/HCPCS: 80053; 81003; 81015; 85025; 87480; 87510; 87660

== ENCOUNTER 2024-08-20 09:12 | Emergency (ER) | payer BC, SELFPAY ==
[2024-08-20 09:16] VITALS: BP 129/91; PULSE 96; RESP 16; TEMP 36.2; O2SAT 100
--- NOTE | 2024-08-20 09:30 | DI.CT_ITS ---
Exam(s) CT ABDOMEN PELVIS W EXAM: CT ABDOMEN PELVIS W CLINICAL HISTORY: lower abd pain and fever 3 weeks post hysterectomy TECHNIQUE: Imaging Protocol: Axial computed tomography images with coronal and sagittal reformatted images were created and reviewed. CONTRAST MATERIAL: Intravenous: Omnipaque 350 Contrast volume:75 mL Oral: No COMPARISON: CT CT ABDOMEN PELVIS W from 09/03/2020 FINDINGS: ABDOMEN: Lung Bases: No acute abnormality. Liver: Normal density. No measurable mass. The liver measures 20.2 cm. Portal, Superior Mesenteric, and Splenic Veins: Unremarkable. Gallbladder and Biliary Tract: No radiodense calculus or dilation. Pancreas: Normal density, no abnormal calcifications or inflammatory process. Spleen: Normal. Adrenals: No masses seen. Kidneys: Normal size, contour and axis. No radiodense stones or obstructive uropathy. No masses seen. Abdominal Aorta: Abdominal portion non-dilated. Bowel: No obstruction or bowel wall thickening. No evidence of appendicitis. Peritoneal Cavity: Mild infiltration seen in the pelvis but no focal fluid collection is seen to sugg est an abscess. No free fluid is seen in the pelvis. No free air. Lymph Nodes: Within normal limits. Bones: Within normal limits for the patient's age. Soft Tissues: Unremarkable. No evidence of an abscess is seen in the soft tissues. PELVIS: Bladder: Symmetric distention, no gross wall thickening. Reproductive Organs: Status post hysterectomy. Lymph Nodes: Within normal limits. Bones: Within normal limits for the patient's age. IMPRESSION: 1. Status post hysterectomy. Mild infiltration of the fat in the lower pelvis but no focal fluid col lection is seen to suggest an abscess. No pneumoperitoneum is present. 2. No other acute abdominal or pelvic process is seen. RADIATION DOSE DELIVERED: 431.68mGy.cm Total DLP DATA REPOSITORY: All CT scans at this facility are submitted to the National Radiology Data Registry (NRDR) Dose Index Registry (DIR) with the [employer] (ACR). RADIATION OPTIMIZATION: All CT scans at this facility use at least one of these dose optimization te chniques: automated exposure control; mA and/or kV adjustment per patient size (includes targeted exa ms where dose is matched to clinical indication); or iterative reconstruction.
[2024-08-20 09:55] LABS: Lactate 1.8 mmol/L (<or=2.0)
[2024-08-20 10:00] LABS: Abs Immature Grans 0.04 10^3/uL (0.0-0.06); Absolute Basophil Count 0.09 10^3/uL (0.0-0.2); Absolute Neutrophil Count 9.49 10^3/uL (1.2-6.7); Basophils % 0.7 %; Eosinophils % 2.1 %; HCT 45.7 % (36.0-46.0); HGB 14.9 g/dL (11.2-15.7); Immature Grans % 0.3 %; Lymphocytes % 17.9 %; MCH 30.5 pg (27.0-33.0); MCHC 32.6 % (32.0-36.0); MCV 94 fL (80-95); MPV 8.4 fL (8.0-11.0); Monocytes % 6.8 %; Neutrophils % 72.2 %; Platelet Count 457 10^3/uL (130-400); RBC 4.88 10^6/uL (3.93-5.22); RDW 12.5 % (11.7-14.6); RDW-SD 43.2 fL; WBC 13.15 10^3/uL (4.4-10.8)
[2024-08-20 10:04] LABS: Absolute Eosinophil Count 0.28 10^3/uL (0.0-0.7); Absolute Lymphocyte Count 2.35 10^3/uL (1.2-3.4); Absolute Monocyte Count 0.89 10^3/uL (0.1-0.8)
[2024-08-20 10:07] LABS: Bilirubin Negative (Negative); Blood Moderate (Negative); Clarity Clear (Clear); Glucose Negative (Negative); Ketones Negative (Negative); Leukocyte Esterase Small (Negative); Nitrite Negative (Negative); Specific Gravity <= 1.005 (1.005-1.025); Urobilinogen 0.2 mg/dL (Up to 0.2); pH 5.5 (5-8)
[2024-08-20] MEDS: Omnipaque 350 MG/ML 500 ML BTL-Imaging package IJ (10:10)
[2024-08-20] MEDS: Normal Saline - Diluent 50 ML VIAL IJ (10:11)
[2024-08-20 10:13] LABS: ALT 25 U/L (14-59); AST 17 U/L (15-37); Albumin 3.9 g/dL (3.4-5.0); Alkaline Phosphatase 80 U/L (46-116); Anion Gap 11.1 mmol/L (3-11); BUN 14 mg/dL (7-18); Bilirubin, Total 0.4 mg/dL (0.2-1.0); CO2 26.9 mmol/L (21.0-32.0); CREATININE 0.9 mg/dL (0.55-1.02); Calcium 9.4 mg/dL (8.5-10.1); Chloride 103 mmol/L (98-107); Estimated GFR 86.57 (mL/min/1.73m2); Glucose 91 mg/dL (74-106); Potassium 3.8 mmol/L (3.5-5.1); Sodium 141 mmol/L (136-145); Total Protein 8.1 g/dL (6.4-8.2)
[2024-08-20 10:19] LABS: Bacteria Negative HPF (Negative); C & S Indicated? Yes; Casts Negative LPF (Negative); Crystals Negative HPF (Negative); Epithelial Cells Rare HPF (Negative); Mucus Negative (Negative)
--- NOTE | 2024-08-20 10:34 | ED.GENADUL_ITS ---
Discharge Plan Disposition Patient Disposition: Home Condition: Stable Discharge Details Clinical Impression: Status post hysterectomy, Acute postoperative pain, Pyuria Primary Care Provider: Mcihelle Munoz ED Provider: Марина Castellanos Home Meds and New Rx's Prescriptions: No Action norethindrone ac-eth estradiol [Dominguez 05/19 ()] 1-20 mg-mcg tablet 1 tab PO DAILY Patient Comments: TAKE ONE TABLET BY MOUTH EVERY DAY Discharge Instructions Instructions: Urinary Tract Infection, Adult ED Additional Instructions: You were seen in the emergency department today for evaluation of lower abdominal/pelvic pain and pain when you urinate, concerning for postoperative pain and UTI. You had laboratory studies that showed a slight elevation in your white blood cell count but were otherwise reassuring. Your urinalysis had white and red blood cells in it, and we are treating you for an infection of both your urine and the soft tissue of your labia. You had a CT scan that did not show any abscesses in your pelvis or other postsurgical complications, but you do need to follow-up with your CHARTERED FINANCIAL ANALYST at your scheduled appointment tomorrow. Plea se use Tylenol and ibuprofen as needed for pain and fever. Thank you for allowing us to be part of your care. HPI General Mode of arrival: ambulatory . Date/Time Provider Initiated Documentation: 08/20/24 09:13 . Limitations to Documentation: no limitations . Information obtained by: patient, family and old records reviewed . HPI Narrative: This is a 34-year-old female patient with a past medical history most notable for chronic pelvic pain and abnormal uterine bleeding now 3 weeks status post total hysterectomy, left salpingo-oophorectomy, right salpingectomy, and partial hymen revision, who is presenting for evaluation of fever, change in abdominal pain, and dysuria. The patient reports that she was healing well from her surgery, but about a week ago began to develop a change in her abdominal discomfort, it now stretches across the bilateral lower quadrants of her abdomen. She feels like she has been able to eat and drink normally, has not taken any medications for this condition. She has noted that the area in which her hymen was resected has been swollen and uncomfortable, she can see the small cut near her stitches at the vaginal introitus. She was seen yesterday by an outpatient provider who recommended that she monitor her symptoms, and return to care for any fever or worsening pain. She had laboratory studies done at that time that were quite reassuring. This morning she developed a fever, to a Tmax at home of 101. She has not taken any medications for management of this symptom, but presented directly to care as she was instructed. Related Data Home Medications ?Medication ?Instructions ?Recorded ?Confirmed norethindrone acetate 1 mg-ethinyl 1 tab PO DAILY 07/31/24 08/20/24 estradiol 20 mcg tablet (Dominguez) Allergies Allergy/AdvReac Type Severity Reaction Status Date / Time amoxicillin AdvReac Intermediate Skin Rash Verified 08/20/24 09:20 General Stated Complaint: Fever PATRICIA: 3 Exam Narrative Exam Narrative: Gen: Awake and alert, in no apparent distress HEENT: Non-icteric sclera Neck: Supple Lungs: No apparent respiratory distress, normal respiratory effort. CV: Appears well perfused Abdomen: Non-distended, soft, laparoscopic incisions are well-healing and approximated with no surrounding skin changes. Abdomen is soft, minimal tenderness to palpation of the bilateral lower quadrants without rigidity, rebound, or guarding. : External vaginal examination supervised by BRANDY Nayak, revealing normal external female genitalia, I can see the incision at the left/3:00 aspect of her hymen with some appropriate postoperative swelling but no redness, induration, or drainage. MSK: Moves 4 extremities without apparent limitation in ROM Skin: Visualized skin without rashes, cyanosis. Neuro: Normal Gait, no obvious focal deficits or facial asymmetry. Speaks in full, clear sentences. Psych: Appropriate for situation. Course Vital Signs Vital signs: Vital Signs Temperature 36.2 C L 08/20/24 09:16 Pulse 96 H 08/20/24 09:16 Respiratory Rate 16 08/20/24 09:16 Blood Pressure 129/91 H 08/20/24 09:16 Pulse Oximetry 100 08/20/24 09:16 Temperature 36.2 C L 08/20/24 09:16 Temperature Source Tympanic 08/20/24 09:16 Pulse 96 H 08/20/24 09:16 Respiratory Rate 16 08/20/24 09:16 Blood Pressure 129/91 H 08/20/24 09:16 Pulse Oximetry 100 08/20/24 09:16 Oxygen Delivery Method Room Air 08/20/24 09:16 Oxygen Flow Rate 0 08/20/24 09:16 Pain Level 2 08/20/24 09:47 Lab/Test Results Lab/Test Results: 08/20/24 09:37 Urine - Reflex from Ua Urine Culture - Pending Laboratory Tests Range/Units 08/20/24 08/20/24 09:37 09:43 WBC (4.4-10.8) 10^3/uL 13.15 H RBC (3.93-5.22) 10^6/uL 4.88 Hgb (11.2-15.7) g/dL 14.9 Hct (36.0-46.0) % 45.7 MCV (80-95) fL 94 MCH (27.0-33.0) pg 30.5 MCHC (32.0-36.0) % 32.6 RDW (11.7-14.6) % 12.5 Plt Count (130-400) 10^3/uL 457 H MPV (8.0-11.0) fL 8.4 Immature Gran % % 0.3 Neutrophils % % 72.2 Lymphocytes % % 17.9 Monocytes % % 6.8 Eosinophils % % 2.1 Basophils % % 0.7 Nucleated RBC % (0.0-0.3) % 0.0 Absolute Neutrophils (1.2-6.7) 10^3/uL 9.49 H Absolute Lymphocytes (1.2-3.4) 10^3/uL 2.35 Absolute Monocytes (0.1-0.8) 10^3/uL 0.89 H Absolute Eosinophils (0.0-0.7) 10^3/uL 0.28 Absolute Basophils (0.0-0.2) 10^3/uL 0.09 VBG Lactate (<or=2.0) mmol/L 1.8 Sodium (136-145) mmol/L 141 Potassium (3.5-5.1) mmol/L 3.8 D Chloride (98-107) mmol/L 103 Carbon Dioxide (21.0-32.0) mmol/L 26.9 Anion Gap (3-11) mmol/L 11.1 H BUN (7-18) mg/dL 14 Creatinine (0.55-1.02) mg/dL 0.9 Est GFR (CKD-EPI 2020) (mL/min/1.73m2) 86.57 Glucose (74-106) mg/dL 91 Calcium (8.5-10.1) mg/dL 9.4 Magnesium (1.8-2.4) mg/dL 2.0 Total Bilirubin (0.2-1.0) mg/dL 0.4 AST (15-37) U/L 17 ALT (14-59) U/L 25 Alkaline Phosphatase (46-116) U/L 80 Total Protein (6.4-8.2) g/dL 8.1 Albumin (3.4-5.0) g/dL 3.9 Urine Color (Yellow) Yellow Urine Clarity (Clear) Clear Urine pH (5-8) 5.5 Ur Specific Dodson (1.005-1.025) <= 1.005 Urine Protein (Neg-Trace) mg/dL Negative Urine Ketones (Negative) mg/dL Negative Urine Blood (Negative) Moderate H Urine Nitrite (Negative) Negative Urine Bilirubin (Negative) Negative Urine Urobilinogen (Up to 0.2) mg/dL 0.2 Ur Leukocyte Esterase (Negative) Small H Urine RBC (0-2) HPF 3-5 H Urine WBC (0-5) HPF 10-20 H Ur Epithelial Cells (Negative) HPF Rare Urine Crystals (Negative) HPF Negative Urine Bacteria (Negative) HPF Negative Urine Casts (Negative) LPF Negative Urine Mucus (Negative) Negative Ur Culture Indicated? Yes Urine Glucose (Negative) mg/dL Negative Medical Decision Making This is a 34-year-old female patient presenting for evaluation of lower abdominal pain after recent hysterectomy. My differential includes but is not limited to intra-abdominal infection including abscess, considered UTI, pyelonephritis, considered soft tissue infection including cellulitis and abscess, especially in the area of her vaginal introitus. Considered metabolic and electrolyte derangements, kidney injury, anemia. The patient is systemically well-appearing at this time with no tachycardia, fever, and does not meet sepsis criteria at this time. She is tolerating oral intake and I have a lower concern for severe dehydration. We will obtain laboratory studies to include CBC, CMP, magnesium, urinalysis, and lactate. I will obtain a CT scan of the abdomen and pelvis to evaluate for abnormalities. -I reviewed the patient's laboratory studies, which shows a mild leukocytosis to 13.1 which is increased from her laboratory studies obtained yesterday. No anemia or thrombocytopenia. Lactate is 1.8, chemistry panel without electrolyte derangements, kidney injury, or evidence of liver dysfunction. Her urinalysis has hematuria, leukocyte esterase elevation and pyuria, though no bacteria. In the setting of her symptoms of dysuria, would be reasonable to treat for urinary tract infection if no other source of her fever and abdominal pain is identified. - The CT scan was reviewed by myself, radiology notes some fat stranding in the pelvis but no discrete abscess, which may be postsurgical in nature, and I have lower concern for an acute postsurgical intra-abdominal infection that would require admission, acute intervention, or intravenous antibiosis. I did discuss this case with CHARTERED FINANCIAL ANALYST at [facility], who agrees that the patient appears to be appropriate for trial of outpatient management. They did recommend initiation of an antibiotic to cover her urinary tract infection, patient already has a prescription for cefpodoxime for 7 days which is appropriate in this situation and I recommended that she fill and start this medication. 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 The patient was able to schedule a follow-up appointment with CHARTERED FINANCIAL ANALYST at [facility] tomorrow, and at this time, the patient has had a full medical evaluation and is safe for discharge to home. They are hemodynamically stable, ambulatory, and tolerating PO. They are understanding of the follow-up plan and return precautions. They left our facility without incident. Марина Castellanos MD Medical Records Medical records reviewed: Yes I reviewed the patient's medical records. Lab Data Lab results reviewed: Yes I reviewed the patient's lab results. Quality:SDOH Health Related Social Needs: No Data to Display PFSH All Active Problems (Updated 08/20/24 @ 12:39 by Марина Castellanos MD) Pyuria (Acute) Acute postoperative pain (Acute) Status post hysterectomy (Acute) Chest pain (Acute) Neuropathy (Acute 04/19/17) Medical History (Updated 08/20/24 @ 12:39 by Марина Castellanos MD) Idiopathic peripheral neuropathy Surgical History (Updated 08/20/24 @ 12:39 by Марина Castellanos MD) History of repair of anterior cruciate ligament of left knee Family History (Updated 04/02/18 @ 09:38 by Fay Walls LPN) Father Hypertension Hyperlipidemia Gout Mother Fatty liver Tremor Paternal Grandmother Depression Bipolar 1 disorder Diabetes Social History (Updated 04/02/18 @ 09:35 by Fay Walls LPN) Smoking/Tobacco Use Status: Never Smoking risk assessment performed?: Yes Alcohol Intake: current Alcohol Intake frequency: a few times a week Drug use: Never Substance use type: does not use 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 PAWSS Have you Been Recently Intoxicated or Drunk Within the Last 30 days?: No Have you Ever Experienced Previous Episodes of Alcohol Withdrawal?: No Have you ever Experienced Withdrawal Seizures?: No Have you ever Experienced Delirium Tremens(DT)s?: No Have you ever undergone Alcohol Rehabilitation Treatment (i.e, inpt ot outpatient treatment programs)?: No Have you ever Experienced Blackouts?: No Have you ever Combined Alcohol with other Downers within the last 90 days?: No Have you ever Combined Alcohol with any other Substance of Abuse during the last 90 days?: No Positive Blood Alcohol level on Presentation? [PCS.BAL]: No Evidence of Increased Autonomic Activity (i.e. HR>120, tremor, sweating, agitation, nausea)?: No Result: 0
[2024-08-20 12:55] VITALS: BP 122/79; PULSE 91; RESP 16; TEMP 36.5; O2SAT 99
== END 2024-08-20 12:55 | disposition home or self-care (01) ==
PROVIDERS: Emergency Provider Emergency Medicine; PCP Nurse Practitioner Family
DX: R10.30 Lower abdominal pain, unspecified (principal); G89.18 Other acute postprocedural pain; R82.81 Pyuria; Z90.710 Acquired absence of both cervix and uterus
CPT/HCPCS: 36415; 80053; 99285; 74177; 81003; 81015; 83605; 83735; 85025; 87086; 99284